=== PATIENT | female | born 1970 | race Two or more races ===

== ENCOUNTER → 2025-03-03 | Outpatient (CLI) | payer MEDICAID, SELFPAY ==
--- NOTE | 2025-03-03 15:42 | XR_ITS ---
Examination: Fingers, right hand first digit 3 views Technique: AP, oblique, lateral views right hand first digit 3 views. Exam date and time: March 03, 2025, 1546 hours INDICATIONS: Right thumb pain 1 month. FINDINGS: Mild osteoarthritis first carpometacarpal joint first metacarpal phalangeal joint and interphalangeal joint first digit No fracture No cortical bone destruction IMPRESSION: Mild osteoarthritis
== END | disposition home or self-care (01) ==
PROVIDERS: PCP Internal Medicine; Referring Provider Internal Medicine; Visit Provider Internal Medicine
DX: M19.041 Primary osteoarthritis, right hand (principal)
CPT/HCPCS: 73140